=== PATIENT | male | born 1965 | race Caucasian/White ===

== ENCOUNTER 2020-03-31 10:51 | Emergency (ER) | payer SELFPAY ==
[2020-03-31] MEDS ORDERED: Adenosine 6 MG/2 ML SDV ONE ×2 (10:58→10:59)
--- NOTE | 2020-03-31 10:59 | EDM.PDOC ---
ED HPI GENERAL MEDICAL PROBLEM - General Chief Complaint: Respiratory Problem Stated Complaint: SOB Time Seen by Provider: 03/31/20 10:59 Source of Information: Reports: Patient History Limitations: Reports: No Limitations - History of Present Illness INITIAL COMMENTS - FREE TEXT/NARRATIVE: Is a 54-year-old male who presents today for shortness of breath. Patient that has been feeling more fatigue when ambulating also when he lays flat he gets more short of breath. When patient arrived for vital signs heart rate rate greater than 200. EKG shows atrial fibrillation but seems to be in SVT there are some P waves present. Patient does report shortness of breath denies any palpitations that he feels chest pain headaches nausea vomiting or other complaints. - Related Data Allergies Allergy/AdvReac Type Severity Reaction Status Date / Time No Known Allergies Allergy Verified 03/31/20 11:46 ED ROS GENERAL - Review of Systems Review Of Systems: Unable To Obtain Reason Not Obtained: condition of patient ED EXAM, GENERAL - Physical Exam Exam: See Below Exam Limited By: No Limitations General Appearance: Alert, Severe Distress Head: Atraumatic Neck: Supple Respiratory/Chest: Wheezing, Accessory Muscle Use Cardiovascular: Tachycardia. No: No Edema GI/Abdominal: Normal Bowel Sounds, Soft, Non-Tender, Distended Neurological: Alert, Oriented ED RESPIRATORY PROCEDURES - Endotracheal Intubation Time of Intubation: 13:00 ET Intubation Indication: Respiratory Failure Preparation: Suction, Balloon Tested, BVM Set Up, Difficult Airway Equip Airway Assessment: Obese Pre-Oxygenation: Assisted with BVM Anesthesia Meds: Etomidate, Succinylcholine Placement: Orotracheal Cords Visualized: Yes ETT Size In mm: 7.5 Number of Attempts: 1 Confirmed By: CO2 Indicator, Bilateral Breath Sounds, Chest Xray - Additional/Other Procedure(s) Other (Free Text) Procedure(s): PROCEDURE SUMMARY: Central line right IJ The [facility] Central Line Insertion Practices form was completed by Dr. Tabor starting with the first handwash prior to starting sterile technique. A time out was performed. My hands were washed immediately prior to the procedure. I wore a surgical cap, mask with protective eyewear, full gown and sterile gloves throughout the procedure. The patient was placed in Trendelenburg position. RIGHT neck region was prepped using chlorhexidine scrub and draped in sterile fashion using a full drape and sterile probe cover employed. The Internal Jugular vein was identified using the ultrasound. Anesthesia was achieved over the vein using 1% lidocaine. Using real-time out of plane guidance, the introducer needle was inserted into the Internal Jugular vein under direct ultrasound visualization. Venous blood was withdrawn. The syringe was removed and a guidewire was advanced into the introducer needle. The guidewire was visualized in the Internal Jugular Vein by ultrasound. A small incision was made at the skin surface with a scalpel and the introducer needle was exchanged for a dilator over the guidewire. After appropriate dilation was obtained, the dilator was exchanged over the wire for central venous catheter. The wire was removed and the catheter was sutured in place. A sterile sorbaview shield was placed over the catheter at the insertion site. The patient tolerated the procedure without any hemodynamic compromise. At time of procedure completion, all ports aspirated and flushed properly. Post-procedure chest x-ray is pending at this time. Estimated blood loss is 10cc. #1 Interpretation EKG Date: 03/31/20 Time: 10:51 Rhythm: A-Fib Rate (Beats/Min): 201 ST-T: Normal #2 Interpretation EKG Date: 03/31/20 Time: 11:12 Rhythm: A-Fib Rate (Beats/Min): 171 ST-T: Normal Course - Vital Signs Last Recorded V/S: Last Vital Signs Temp 96.8 F L 03/31/20 10:51 Pulse 199 H 03/31/20 10:51 Resp 26 H 03/31/20 10:51 BP 171/138 H 03/31/20 10:51 Pulse Ox 95 03/31/20 10:51 - Orders/Labs/Meds Orders: Active Orders 24 hr Category Date Time Status BIPAP Adult [RT BiPAP/CPAP] [RC] ASDIRECTED Care 03/31/20 11:18 Active Chest PE [Ang Chest] [CT] Stat Exams 03/31/20 12:24 Ordered B-TYPE NATRIURETIC PEPTIDE,BNP [CHEM] Stat Lab 03/31/20 11:00 Received PTT,PARTIAL THROMBOPLSTIN TIME [COAG] Q6H Lab 03/31/20 13:30 Ordered PTT,PARTIAL THROMBOPLSTIN TIME [COAG] Q6H Lab 04/01/20 01:30 Ordered PTT,PARTIAL THROMBOPLSTIN TIME [COAG] Q6H Lab 04/01/20 07:30 Ordered PTT,PARTIAL THROMBOPLSTIN TIME [COAG] Q6H Lab 04/01/20 13:30 Ordered PTT,PARTIAL THROMBOPLSTIN TIME [COAG] Q6H Lab 04/01/20 19:30 Ordered PTT,PARTIAL THROMBOPLSTIN TIME [COAG] Q6H Lab 04/02/20 01:30 Ordered Diltiazem [Cardizem] 100 mg Med 03/31/20 11:30 Active Sodium Chloride 0.9% [Normal Saline] 100 ml IV NOW Diltiazem [Cardizem] 100 mg Med 03/31/20 11:30 Active Sodium Chloride 0.9% [Normal Saline] 100 ml IV ONETIME Heparin Sodium/0.45% NaCl [Heparin 25,000 Units in 1/2 Med 03/31/20 13:30 Active NS 500 ML] 500 ml IV TITRATE fentaNYL [Sublimaze] 2,500 mcg Med 03/31/20 14:15 Active Sodium Chloride 0.9% [Normal Saline] 200 ml IV TITRATE Medication Orders Diltiazem HCl 100 mg/ Sodium (Chloride) 100 mls @ 10 mls/hr IV ONETIME ONE Stop: 03/31/20 21:29 Last Infusion: 03/31/20 11:54 Dose: 15 mls/hr Documented by: Admin: 03/31/20 11:36 Dose: 10 mls/hr Documented by: SONI Diltiazem HCl 100 mg/ Sodium (Chloride) 100 mls @ 5 mls/hr IV NOW SERGIO; Protocol Heparin Sodium/Sodium Chloride (Heparin 25,000 Units In 1/2 Ns 500 Ml) 500 mls @ 48.988 mls/hr IV TITRATE SERGIO; Protocol Last Admin: 03/31/20 14:00 Dose: 18 units/kg/hr, 48.988 mls/hr Documented by: SONI Cosigned by: RONY Fentanyl 2,500 mcg/ Sodium (Chloride) 250 mls @ 13.608 mls/hr IV TITRATE SEGRIO; Protocol Labs: Laboratory Tests 03/31/20 03/31/20 03/31/20 Range/Units 11:00 11:00 11:00 WBC 8.20 (4.0-11.0) K/uL RBC 5.21 (4.50-5.90) M/uL Hgb 17.2 H (13.0-17.0) g/dL Hct 52.1 H (38.0-50.0) % MCV 100.0 H (80.0-98.0) fL MCH 33.0 H (27.0-32.0) pg MCHC 33.0 (31.0-37.0) g/dL RDW Std Deviation 49.1 (28.0-62.0) fl RDW Coeff of Ujve 13 (11.0-15.0) % Plt Count 217 (150-400) K/uL MPV 10.40 (7.40-12.00) fL Neut % (Auto) 75.1 (48.0-80.0) % Lymph % (Auto) 14.5 L (16.0-40.0) % [place] % (Auto) 9.6 (0.0-15.0) % Eos % (Auto) 0.4 (0.0-7.0) % Baso % (Auto) 0.4 (0.0-1.5) % Neut # (Auto) 6.2 H (1.4-5.7) K/uL Lymph # (Auto) 1.2 (0.6-2.4) K/uL [place] # (Auto) 0.8 (0.0-0.8) K/uL Eos # (Auto) 0.0 (0.0-0.7) K/uL Baso # (Auto) 0.0 (0.0-0.1) K/uL Nucleated RBC % 0.0 /100WBC Nucleated RBCs # 0 K/uL INR 1.25 APTT 25.9 (18.6-31.3) SEC D-Dimer, Quantitative (0.0-0.50) mg/L FEU ABG pH (7.35-7.45) ABG pCO2 (35-45) mmHG ABG pO2 (75-100) mmHG ABG HCO3 (22-26) mEq/L ABG Total CO2 ABG Base Excess (-2.0-2.0) Sodium 132 L (136-148) mmol/L Potassium 4.3 (3.5-5.1) mmol/L Chloride 97 L (98-107) mmol/L Carbon Dioxide 20.7 L (21.0-32.0) mmol/L BUN 12 (7.0-18.0) mg/dL Creatinine 1.3 (0.8-1.3) mg/dL Est Cr Clr Drug Dosing 66.29 mL/min Estimated GFR (MDRD) 57.3 ml/min Glucose 129 H (74-106) mg/dL Calcium 8.7 (8.5-10.1) mg/dL Phosphorus 3.4 (2.6-4.7) mg/dL Magnesium 2.0 (1.8-2.4) mg/dL Total Bilirubin 1.0 (0.2-1.0) mg/dL AST 60 H (15-37) IU/L ALT 56 (14-63) IU/L Alkaline Phosphatase 90 (46-116) U/L Creatine Kinase 155 (26-308) U/L Troponin I < 0.050 (0.000-0.056) ng/mL Total Protein 7.6 (6.4-8.2) g/dL Albumin 3.6 (3.4-5.0) g/dL Globulin 4.0 (2.6-4.0) g/dL Albumin/Globulin Ratio 0.9 (0.9-1.6) Lipase 245 (73-393) U/L Urine Color Urine Appearance Urine pH (5.0-8.0) Ur Specific [place] (1.001-1.035) Urine Protein (NEGATIVE) mg/dL Urine Glucose (UA) (NEGATIVE) mg/dL Urine Ketones (NEGATIVE) mg/dL Urine Occult Blood (NEGATIVE) Urine Nitrite (NEGATIVE) Urine Bilirubin (NEGATIVE) Urine Urobilinogen (<2.0) EU/dL Ur Leukocyte Esterase (NEGATIVE) Urine RBC (0-2/HPF) Urine WBC (0-5/HPF) Ur Epithelial Cells (NONE-FEW) Amorphous Sediment (NEGATIVE) Urine Bacteria (NEGATIVE) SARS-CoV-2 RNA (ROB) (NEGATIVE) 03/31/20 03/31/20 03/31/20 Range/Units 11:00 11:27 12:25 WBC (4.0-11.0) K/uL RBC (4.50-5.90) M/uL Hgb (13.0-17.0) g/dL Hct (38.0-50.0) % MCV (80.0-98.0) fL MCH (27.0-32.0) pg MCHC (31.0-37.0) g/dL RDW Std Deviation (28.0-62.0) fl RDW Coeff of Juve (11.0-15.0) % Plt Count (150-400) K/uL MPV (7.40-12.00) fL Neut % (Auto) (48.0-80.0) % Lymph % (Auto) (16.0-40.0) % [place] % (Auto) (0.0-15.0) % Eos % (Auto) (0.0-7.0) % Baso % (Auto) (0.0-1.5) % Neut # (Auto) (1.4-5.7) K/uL Lymph # (Auto) (0.6-2.4) K/uL [place] # (Auto) (0.0-0.8) K/uL Eos # (Auto) (0.0-0.7) K/uL Baso # (Auto) (0.0-0.1) K/uL Nucleated RBC % /100WBC Nucleated RBCs # K/uL INR APTT (18.6-31.3) SEC D-Dimer, Quantitative 1.31 H (0.0-0.50) mg/L FEU ABG pH (7.35-7.45) ABG pCO2 (35-45) mmHG ABG pO2 (75-100) mmHG ABG HCO3 (22-26) mEq/L ABG Total CO2 ABG Base Excess (-2.0-2.0) Sodium (136-148) mmol/L Potassium (3.5-5.1) mmol/L Chloride (98-107) mmol/L Carbon Dioxide (21.0-32.0) mmol/L BUN (7.0-18.0) mg/dL Creatinine (0.8-1.3) mg/dL Est Cr Clr Drug Dosing mL/min Estimated GFR (MDRD) ml/min Glucose (74-106) mg/dL Calcium (8.5-10.1) mg/dL Phosphorus (2.6-4.7) mg/dL Magnesium (1.8-2.4) mg/dL Total Bilirubin (0.2-1.0) mg/dL AST (15-37) IU/L ALT (14-63) IU/L Alkaline Phosphatase (46-116) U/L Creatine Kinase (26-308) U/L Troponin I (0.000-0.056) ng/mL Total Protein (6.4-8.2) g/dL Albumin (3.4-5.0) g/dL Globulin (2.6-4.0) g/dL Albumin/Globulin Ratio (0.9-1.6) Lipase (73-393) U/L Urine Color YELLOW Urine Appearance CLOUDY Urine pH 6.0 (5.0-8.0) Ur Specific [place] 1.025 (1.001-1.035) Urine Protein TRACE H (NEGATIVE) mg/dL Urine Glucose (UA) NEGATIVE (NEGATIVE) mg/dL Urine Ketones NEGATIVE (NEGATIVE) mg/dL Urine Occult Blood NEGATIVE (NEGATIVE) Urine Nitrite NEGATIVE (NEGATIVE) Urine Bilirubin NEGATIVE (NEGATIVE) Urine Urobilinogen 1.0 (<2.0) EU/dL Ur Leukocyte Esterase NEGATIVE (NEGATIVE) Urine RBC 0-1 (0-2/HPF) Urine WBC 0-1 (0-5/HPF) Ur Epithelial Cells RARE (NONE-FEW) Amorphous Sediment MODERATE (NEGATIVE) Urine Bacteria FEW (NEGATIVE) SARS-CoV-2 RNA (ROB) POSITIVE H (NEGATIVE) 03/31/20 Range/Units 14:10 WBC (4.0-11.0) K/uL RBC (4.50-5.90) M/uL Hgb (13.0-17.0) g/dL Hct (38.0-50.0) % MCV (80.0-98.0) fL MCH (27.0-32.0) pg MCHC (31.0-37.0) g/dL RDW Std Deviation (28.0-62.0) fl RDW Coeff of Juve (11.0-15.0) % Plt Count (150-400) K/uL MPV (7.40-12.00) fL Neut % (Auto) (48.0-80.0) % Lymph % (Auto) (16.0-40.0) % [place] % (Auto) (0.0-15.0) % Eos % (Auto) (0.0-7.0) % Baso % (Auto) (0.0-1.5) % Neut # (Auto) (1.4-5.7) K/uL Lymph # (Auto) (0.6-2.4) K/uL [place] # (Auto) (0.0-0.8) K/uL Eos # (Auto) (0.0-0.7) K/uL Baso # (Auto) (0.0-0.1) K/uL Nucleated RBC % /100WBC Nucleated RBCs # K/uL INR APTT (18.6-31.3) SEC D-Dimer, Quantitative (0.0-0.50) mg/L FEU ABG pH 7.024 L* (7.35-7.45) ABG pCO2 82 H (35-45) mmHG ABG pO2 66 L (75-100) mmHG ABG HCO3 22 (22-26) mEq/L ABG Total CO2 20.5 ABG Base Excess -11.9 L (-2.0-2.0) Sodium (136-148) mmol/L Potassium (3.5-5.1) mmol/L Chloride (98-107) mmol/L Carbon Dioxide (21.0-32.0) mmol/L BUN (7.0-18.0) mg/dL Creatinine (0.8-1.3) mg/dL Est Cr Clr Drug Dosing mL/min Estimated GFR (MDRD) ml/min Glucose (74-106) mg/dL Calcium (8.5-10.1) mg/dL Phosphorus (2.6-4.7) mg/dL Magnesium (1.8-2.4) mg/dL Total Bilirubin (0.2-1.0) mg/dL AST (15-37) IU/L ALT (14-63) IU/L Alkaline Phosphatase (46-116) U/L Creatine Kinase (26-308) U/L Troponin I (0.000-0.056) ng/mL Total Protein (6.4-8.2) g/dL Albumin (3.4-5.0) g/dL Globulin (2.6-4.0) g/dL Albumin/Globulin Ratio (0.9-1.6) Lipase (73-393) U/L Urine Color Urine Appearance Urine pH (5.0-8.0) Ur Specific [place] (1.001-1.035) Urine Protein (NEGATIVE) mg/dL Urine Glucose (UA) (NEGATIVE) mg/dL Urine Ketones (NEGATIVE) mg/dL Urine Occult Blood (NEGATIVE) Urine Nitrite (NEGATIVE) Urine Bilirubin (NEGATIVE) Urine Urobilinogen (<2.0) EU/dL Ur Leukocyte Esterase (NEGATIVE) Urine RBC (0-2/HPF) Urine WBC (0-5/HPF) Ur Epithelial Cells (NONE-FEW) Amorphous Sediment (NEGATIVE) Urine Bacteria (NEGATIVE) SARS-CoV-2 RNA (ROB) (NEGATIVE) Meds: Medications Generic Name Dose Route Start Last Admin Trade Name Freq PRN Reason Stop Dose Admin Diltiazem HCl 100 mg/ Sodium 100 mls @ 10 mls/hr 03/31/20 11:30 03/31/20 11:54 Chloride IV 03/31/20 21:29 15 mls/hr ONETIME ONE Infusion Diltiazem HCl 100 mg/ Sodium 100 mls @ 5 mls/hr 03/31/20 11:30 Chloride IV NOW SERGIO Protocol 5 MG/HR Heparin Sodium/Sodium Chloride 500 mls @ 48.988 mls/hr 03/31/20 13:30 03/31/20 14:00 Heparin 25,000 Units In 1/2 Ns 500 Ml IV 18 units/kg/hr TITRATE SERGIO 48.988 mls/hr Administration Protocol 18 UNITS/KG/HR Fentanyl 2,500 mcg/ Sodium 250 mls @ 13.608 mls/hr 03/31/20 14:15 Chloride IV TITRATE SERGIO Protocol 1 MCG/KG/HR Discontinued Medications Generic Name Dose Route Start Last Admin Trade Name Freq PRN Reason Stop Dose Admin Adenosine Confirm 03/31/20 10:58 03/31/20 12:05 Adenocard Administered 03/31/20 10:59 Not Given Dose 6 mg .ROUTE .STK-MED ONE Adenosine Confirm 03/31/20 10:59 03/31/20 12:08 Adenocard Administered 03/31/20 11:00 Not Given Dose 12 mg .ROUTE .STK-MED ONE Adenosine 6 mg 03/31/20 11:39 03/31/20 11:49 Adenocard IVPUSH 03/31/20 11:40 6 mg NOW ONE Administration Adenosine 12 mg 03/31/20 11:41 03/31/20 11:50 Adenocard IVPUSH 03/31/20 11:42 12 mg NOW ONE Administration Diltiazem HCl Confirm 03/31/20 11:06 03/31/20 12:08 Diltiazem Administered 03/31/20 11:07 Not Given Dose 25 mg .ROUTE .STK-MED ONE Diltiazem HCl Confirm 03/31/20 11:11 03/31/20 12:05 Diltiazem Administered 03/31/20 11:12 Not Given Dose 25 mg .ROUTE .STK-MED ONE Diltiazem HCl 20 mg 03/31/20 11:41 03/31/20 11:48 Diltiazem IVPUSH 03/31/20 11:42 20 mg ONETIME ONE Administration Diltiazem HCl 20 mg 03/31/20 11:50 03/31/20 12:05 Diltiazem IVPUSH 03/31/20 11:51 20 mg ONETIME ONE Administration Fentanyl 50 mcg 03/31/20 14:14 Sublimaze IVPUSH 03/31/20 14:15 ONETIME ONE Furosemide 40 mg 03/31/20 12:12 03/31/20 12:17 Lasix IVPUSH 03/31/20 12:13 40 mg NOW ONE Administration Sodium Chloride 1,000 mls @ 999 mls/hr 03/31/20 11:42 03/31/20 11:48 Normal Saline IV 03/31/20 12:42 999 mls/hr .Bolus ONE Administration Propofol Confirm 03/31/20 13:29 Diprivan 100 Ml Administered 03/31/20 13:30 Dose 100 mls @ as directed .ROUTE .STK-MED ONE Midazolam HCl 2 mg 03/31/20 12:04 03/31/20 12:09 Versed 1 Mg/Ml IVPUSH 03/31/20 12:05 2 mg ONETIME ONE Administration Midazolam HCl Confirm 03/31/20 13:28 Versed 1 Mg/Ml Administered 03/31/20 13:29 Dose 4 mg .ROUTE .STK-MED ONE - Re-Assessments/Exams Free Text/Narrative Re-Assessment/Exam: 03/31/20 14:08 Heart rate rated an 180. Without SVT initially so we gave adenosine x2. This did not correct patient heart rate we then gave him diltiazem x2 heart rate did improve to the 150s patient was then placed on diltiazem drip. 20s. Patient was placed on BiPAP as he continued to state he cannot breathe and oxygen level was in the mid 80s. Patient did improve to oxygenation 100% on BiPAP but about 45 minutes oxygen saturations dropped down to the mid 80s again and patient blood pressure also dropped on a diltiazem drip to 89/47. Patient heart rate remained in the 150s. We decreased the diltiazem drip down to 10. Patient was then intubated. Patient was placed on a propofol drip after intubation. Patient heart rate did improve down to the 115. Patient blood pressure is also stable in the 140s. Patient oxygenation well intubated still in the mid 80s. We were able to speak to [facility] when he was at the patient. We attempted to call my [facility] [place] [facility] [place] and spent over 2 hours trying to transfer patient before we got accepted at [facility]. Departure - Departure Time of Disposition: 14:10 Disposition: DC/Tfer to Acute Hospital 02 Condition: Good, Fair Clinical Impression: A-fib, Hypoxia - Discharge Information *PRESCRIPTION DRUG MONITORING PROGRAM REVIEWED*: Not Applicable *COPY OF PRESCRIPTION DRUG MONITORING REPORT IN PATIENT SERENE: Not Applicable Referrals: PCP,Unknown [Primary Care Provider] - Forms: ED Department Discharge Critical Care Note - Critical Care Note Total Time (mins): 50 Comments: Critical Care Procedure Note Authorized and Performed by: Dr. Tabor Total critical care time: Approximately Due to a high probability of clinically significant, life threatening deterioration, the patient required my highest level of preparedness to intervene emergently and I personally spent this critical care time directly and personally managing the patient. This critical care time included obtaining a history; examining the patient; pulse oximetry; ordering and review of studies; arranging urgent treatment with development of a management plan; evaluation of patient's response to treatment; frequent reassessment; and, discussions with other providers. This critical care time was performed to assess and manage the high probability of imminent, life-threatening deterioration that could result in multi-organ failure. It was exclusive of separately billable procedures and treating other patients and teaching time. Sepsis Event Note (ED) - Focused Exam Vital Signs: Vital Signs Temp Pulse Resp BP Pulse Ox 03/31/20 10:51 96.8 F L 199 H 26 H 171/138 H 95 - My Orders Last 24 Hours: My Active Orders 03/31/20 11:00 B-TYPE NATRIURETIC PEPTIDE,BNP [CHEM] Stat 03/31/20 11:18 BIPAP Adult [RT BiPAP/CPAP] [] ASDIRECTED 03/31/20 11:30 Diltiazem [Cardizem] 100 mg Sodium Chloride 0.9% [Normal Saline] 100 ml IV NOW Diltiazem [Cardizem] 100 mg Sodium Chloride 0.9% [Normal Saline] 100 ml IV ONETIME 03/31/20 12:24 Chest PE [Ang Chest] [CT] Stat 03/31/20 13:30 PTT,PARTIAL THROMBOPLSTIN TIME [COAG] Q6H Heparin Sodium/0.45% NaCl [Heparin 25,000 Units in 1/2 NS 500 ML] 500 ml IV TITRATE 03/31/20 14:15 fentaNYL [Sublimaze] 2,500 mcg Sodium Chloride 0.9% [Normal Saline] 200 ml IV TITRATE 04/01/20 01:30 PTT,PARTIAL THROMBOPLSTIN TIME [COAG] Q6H 04/01/20 07:30 PTT,PARTIAL THROMBOPLSTIN TIME [COAG] Q6H 04/01/20 13:30 PTT,PARTIAL THROMBOPLSTIN TIME [COAG] Q6H 04/01/20 19:30 PTT,PARTIAL THROMBOPLSTIN TIME [COAG] Q6H 04/02/20 01:30 PTT,PARTIAL THROMBOPLSTIN TIME [COAG] Q6H - Assessment/Plan Last 24 Hours: My Active Orders 03/31/20 11:00 B-TYPE NATRIURETIC PEPTIDE,BNP [CHEM] Stat 03/31/20 11:18 BIPAP Adult [RT BiPAP/CPAP] [RC] ASDIRECTED 03/31/20 11:30 Diltiazem [Cardizem] 100 mg Sodium Chloride 0.9% [Normal Saline] 100 ml IV NOW Diltiazem [Cardizem] 100 mg Sodium Chloride 0.9% [Normal Saline] 100 ml IV ONETIME 03/31/20 12:24 Chest PE [Ang Chest] [CT] Stat 03/31/20 13:30 PTT,PARTIAL THROMBOPLSTIN TIME [COAG] Q6H Heparin Sodium/0.45% NaCl [Heparin 25,000 Units in 1/2 NS 500 ML] 500 ml IV TITRATE 03/31/20 14:15 fentaNYL [Sublimaze] 2,500 mcg Sodium Chloride 0.9% [Normal Saline] 200 ml IV TITRATE 04/01/20 01:30 PTT,PARTIAL THROMBOPLSTIN TIME [COAG] Q6H 04/01/20 07:30 PTT,PARTIAL THROMBOPLSTIN TIME [COAG] Q6H 04/01/20 13:30 PTT,PARTIAL THROMBOPLSTIN TIME [COAG] Q6H 04/01/20 19:30 PTT,PARTIAL THROMBOPLSTIN TIME [COAG] Q6H 04/02/20 01:30 PTT,PARTIAL THROMBOPLSTIN TIME [COAG] Q6H Assessment:: Is a 54-year-old male who presents today for shortness of breath but found to have heart rate greater than 200. EKG seems to be in SVT we gave 6 mg of adenosine and then follow another 12 mg adenosine heart rate barely slowed will now give diltiazem 20 mg [address] patient on a drip. Patient is satting greater than 96% room air but still is complaints that he cannot breathe. There is some wheezing on exam patient has history of COPD and possibly CHF will give BiPAP for comfort. Patient likely will be transferred for [facility].
[2020-03-31] MEDS ORDERED: Diltiazem 25 MG/5 ML SDV ONE ×2 (11:06→11:11)
[2020-03-31] MEDS ORDERED: Diltiazem 100 MG in Sodium Chloride 0.9% 100 ML IV SCH (11:30)
[2020-03-31] MEDS ORDERED: Diltiazem 100 MG in Sodium Chloride 0.9% 100 ML IV ONE (11:30)
--- NOTE | 2020-03-31 11:34 | CR ---
HISTORY: Shortness of breath and tachycardia. COMPARISON: None. TECHNIQUE: Chest one-view portable upright. FINDINGS: There is a small right pleural effusion. Interstitial pulmonary edema. There is no focal consolidation or pneumothorax. The central airway is normal. IMPRESSION: 1. Interstitial pulmonary edema. 2. Small right pleural effusion. Dictated by Ethan Gurrola MD @ Mar 31 2020 11:32AM Signed by Dr. Ethan Gurrola @ Mar 31 2020 11:33AM
[2020-03-31] MEDS ORDERED: Adenosine 6 MG/2 ML SDV IVPUSH ONE ×2 (11:39→11:41)
[2020-03-31] MEDS ORDERED: Diltiazem 25 MG/5 ML SDV IVPUSH ONE ×3 (11:41→11:50)
[2020-03-31] MEDS ORDERED: Sodium Chloride 0.9% 1,000 ML IV ONE (11:42)
[2020-03-31 11:47] LABS: BLOOD UREA NITROGEN,BUN 12 mg/dL (7.0-18.0); CARBON DIOXIDE,CO2 20.7 mmol/L (21.0-32.0); CHLORIDE,CL 97 mmol/L (98-107); GLUCOSE RANDOM 129 mg/dL (74-106); LIPASE 245 U/L (73-393); POTASSIUM,K 4.3 mmol/L (3.5-5.1); SODIUM,NA 132 mmol/L (136-148)
[2020-03-31] MEDS ORDERED: Midazolam 1 MG/ML 2 ML SDV IVPUSH ONE ×2 (12:04→14:52)
[2020-03-31] MEDS ORDERED: Furosemide 40 MG/4 ML VIAL IVPUSH ONE (12:12)
[2020-03-31] MEDS ORDERED: Midazolam 1 MG/ML 2 ML SDV ONE (13:28)
[2020-03-31] MEDS ORDERED: propofoL 100 ML ONE (13:29)
[2020-03-31] MEDS ORDERED: Heparin Sodium/0.45% NaCl 500 ML IV SCH (13:30)
--- NOTE | 2020-03-31 14:03 | CR ---
HISTORY: Post intubation. TECHNIQUE: One view chest. COMPARISON: 03/31/2020. FINDINGS: The endotracheal tube terminates approximately 3.5 cm above the akos[place]. Nasogastric tube terminates below the diaphragm. Interval worsening of bilateral lung opacity which more likely relates to pulmonary edema or ARDS than bilateral pneumonia given its rapid progression. There is no pneumothorax. At least a small right-sided pleural effusion is suspect as before. Cardiac size is mildly prominent but exaggerated by technique. IMPRESSION: 1. Tubes as above. 2. Interval worsening of bilateral lung opacity more likely relate to either pulmonary edema or ARDS given the rapid worsening. Bilateral pneumonia would be a secondary consideration. 3. At least a small right-sided pleural effusion suspected as before. Dictated by Eric Benitez MD @ 03/31/2020 2:01:09 PM Dictated by: Eric Benitez MD @ 03/31/2020 14:01:18 (Electronically Signed)
[2020-03-31] MEDS ORDERED: fentaNYL 100 MCG/2 ML SDV IVPUSH ONE (14:14)
[2020-03-31] MEDS ORDERED: fentaNYL 2,500 MCG in Sodium Chloride 0.9% 200 ML IV SCH (14:15)
[2020-03-31] MEDS ORDERED: propofoL 100 ML IV SCH (15:00)
[2020-03-31] MEDS ORDERED: Rocuronium 50 MG/5 ML Vial IVPUSH ONE (15:04)
[2020-03-31] MEDS ORDERED: Rocuronium 100 MG/10 ML Syringe IVPUSH ONE (15:05)
[2020-03-31] MEDS ORDERED: Etomidate 2 MG/ML 20 ML SDV IVPUSH ONE (15:20)
[2020-03-31] MEDS ORDERED: Succinylcholine 200 MG/10 ML MDV IV ONE (15:20)
--- NOTE | 2020-03-31 15:42 | CR ---
INDICATION: Central line placement. TECHNIQUE: Chest 1 view. COMPARISON: 03/31/2020 performed at 1:33 p.m. and 11:22 a.m. Findings and impression: : Only the upper chest is imaged. The endotracheal tube terminates just below the level of the clavicles. There has been interval placement of a right central venous catheter. Tip appears to terminate in the mid SVC. An enteric catheter overlies the midline and courses off the inferior aspect of the imaged. Pacing pad overlies the right chest. No definite pneumothorax. Lungs are grossly stable in appearance. Dictated by Abhilash Brown MD @ 03/31/2020 3:40:07 PM Dictated by: Abhilash Brown MD @ 03/31/2020 15:40:16 (Electronically Signed)
== END 2020-03-31 16:02 ==
LOC: MW.ED 10:51
DX: U07.1 COVID-19 (principal); I48.91 Unspecified atrial fibrillation; R09.02 Hypoxemia
CPT/HCPCS: 31500; 36415; 36556; 36600; 43752; 51702; 71045; 80053; 81001; 82550; 82803; 83690; 83735; 83880; 84100; 84484; 85025; 85379; 85610; 85730; 87635; 94660; 96365; 96366; 96368; 96375; 96376; 99285; J0153; J0330; J1644; J1940; J2250; J2704; J3010; J3490; J7030; J7050; U0002